=== PATIENT | female | born 1935 | race African-American/Black ===

== ENCOUNTER 2017-07-25 10:41 | Emergency (ER) | payer OTHER, BC ==
[2017-07-25 11:00] VITALS: BMI 25.3
--- NOTE | 2017-07-25 12:46 | PDOC ---
History of Present Illness - General Chief Complaint: Pain Stated Complaint: LT LEG PAIN, GOUT (PCP SENT) Time Seen by Provider: 07/25/17 12:16 History Source: Patient Exam Limitations: No Limitations - History of Present Illness Initial Comments: 07/25/17 12:33 Patient is a 82-year-old female with history of hypothyroidism, non-insulin- dependent diabetes, stent placement, was on high blood pressure medication recently discontinued. Patient also with recent episode of gout to right lower extremity on allopurinol and colchicine. Was sent by Dr. Gracia for evaluation of nontraumatic left upper leg pain. Patient was out yesterday walking around without any difficulty, went shopping. After questioning, Patient also complaining of tingling feeling to left side of the chest with left arm pain applied Aspercreme yesterday, pain still the same. Denies any shortness of breath. No jaw pain. No shortness of breath. Limited examination able to be performed while in fast track, patient unable to transfer to examination table from wheelchair. Allergies: No known allergies Medications: See medication list Family History: Non-contributory Social History: Denies smoking, alcohol use, or IVDU Review of Systems GENERAL/CONSTITUTIONAL: No fever or chills. No weakness. No weight change. HEAD, EYES, EARS, NOSE AND THROAT: No change in vision. No ear pain or discharge. No sore throat. CARDIOVASCULAR: Left-sided chest tingling with left arm pain, no shortness of breath RESPIRATORY: No cough, wheezing, or hemoptysis. GASTROINTESTINAL: No nausea, vomiting, diarrhea or constipation. No rectal bleeding. GENITOURINARY: No dysuria, frequency, or change in urination. MUSCULOSKELETAL: No joint or muscle swelling or pain. No neck or back pain. Pain to left upper leg SKIN AND BREASTS: No rash or easy bruising. NEUROLOGIC: No headache, vertigo, loss of consciousness, or loss of sensation. PSYCHIATRIC: No depression or anxiety. ENDOCRINE: No increased thirst. No abnormal weight change. HEMATOLOGIC/LYMPHATIC: No anemia, easy bleeding, or history of blood clots. ALLERGIC/IMMUNOLOGIC: No hives or skin allergy. No latex allergy. Physical Exam: GENERAL: The patient is awake, alert, and fully oriented, in no acute distress. EYES: Pupils equal, round and reactive to light, extraocular movements intact, sclera anicteric, conjunctiva clear. ENT: Ears normal, nares patent, oropharynx clear without exudates. Moist mucous membranes. No uvula deviation NECK: Normal range of motion, supple without lymphadenopathy, JVD, or masses. LUNGS: Breath sounds equal, clear to auscultation bilaterally. No wheezes, and no crackles. HEART: Regular rate and rhythm, normal S1 and S2 without murmur, rub or gallop. MUSCULOSKELETAL: Decreased range of motion to left upper leg, unable to bear weight pain with standing, with pain on range of motion no edema, no erythema, no bruising. No evidence of injury. No clubbing or cyanosis. No cords, erythema , or tenderness. No CVA Tenderness with fist palpation. SKIN: Warm, Dry, normal turgor, no rashes or lesions noted. Past History - Past Medical History Allergies/Adverse Reactions: Allergies Allergy/AdvReac Type Severity Reaction Status Date / Time Penicillins Allergy Difficulty Verified 07/25/17 10:55 Breathing Home Medications: Ambulatory Orders Allopurinol [Zyloprim -] 100 mg PO DAILY 07/25/17 Aspirin [Lio Chewable] 81 mg PO ASDIR 07/25/17 Glipizide 10 mg PO ASDIR 07/25/17 Levothyroxine [Synthroid -] 25 mcg PO DAILY 07/25/17 Lidocaine 5% Patch [Lidoderm Patch -] 1 patch TP DAILY #7 patch 07/25/17 Tramadol HCl 50 mg PO Q6H #12 tablet MDD 200mg 07/25/17 Diabetes: Yes Other medical history: GOUT - Suicide/Smoking/Psychosocial Hx Smoking History: Never smoked *Physical Exam - Vital Signs Last Vital Signs Temp Pulse Resp BP Pulse Ox 98.3 F 87 19 118/50 97 07/25/17 10:56 07/25/17 10:56 07/25/17 10:56 07/25/17 10:56 07/25/17 10:56 Medical Decision Making - Medical Decision Making 07/25/17 12:46 A/P: Based upon patient's clinical presentation and nontraumatic pain to leg also with left-sided chest discomfort and left arm pain patient sent to main emergency department for higher level of care. Report to Shaye CUNNINGHAM. Patient transferred via wheelchair. Stable for transfer. *DC/Admit/Observation/Transfer Diagnosis at time of Disposition: Thigh pain Qualifiers: Laterality: left Qualified Code(s): M79.652 - Pain in left thigh - Discharge Dispostion Disposition: HOME Condition at time of disposition: Improved - Prescriptions Prescriptions: Lidocaine 5% Patch [Lidoderm Patch -] 1 patch TP DAILY #7 patch Tramadol HCl 50 mg PO Q6H #12 tablet MDD 200mg - Referrals Referrals: Griffin Gracia MD [Primary Care Provider] - - Patient Instructions Additional Instructions: Take medications as prescribed and follow-up with your primary doctor next week
[2017-07-25] MEDS ORDERED: traMADol HCL 50 MG TABLET PO ONE (13:35)
[2017-07-25] MEDS ORDERED: KETOROLAC TROMETHAMINE 30 MG/1 ML VIAL IM ONE (13:35)
[2017-07-25] MEDS ORDERED: KETOROLAC TROMETHAMINE 30 MG/1 ML VIAL ONE (13:48)
[2017-07-25] MEDS ORDERED: traMADol HCL 50 MG TABLET ONE (13:48)
--- NOTE | 2017-07-25 13:58 | PDOC ---
History of Present Illness - General History Source: Patient - History of Present Illness Occurred: reports: this morning Lower Extremity Pain Location: left: other (anteriomedial L thigh) <Hipolito Garcia - Last Filed: 07/25/17 15:05> <Hannah Ireland - Last Filed: 07/25/17 16:53> - General Chief Complaint: Pain Stated Complaint: LT LEG PAIN, GOUT (PCP SENT) Time Seen by Provider: 07/25/17 12:16 Past History - Past Medical History Diabetes: Yes Other medical history: GOUT - Suicide/Smoking/Psychosocial Hx Smoking History: Never smoked <Sharita GarciaShadRina - Last Filed: 07/25/17 15:05> <Hannah Ireland - Last Filed: 07/25/17 16:53> - Past Medical History Allergies/Adverse Reactions: Allergies Allergy/AdvReac Type Severity Reaction Status Date / Time Penicillins Allergy Difficulty Verified 07/25/17 10:55 Breathing Home Medications: Ambulatory Orders Allopurinol [Zyloprim -] 100 mg PO DAILY 07/25/17 Aspirin [Lio Chewable] 81 mg PO ASDIR 07/25/17 Glipizide 10 mg PO ASDIR 07/25/17 Levothyroxine [Synthroid -] 25 mcg PO DAILY 07/25/17 Lidocaine 5% Patch [Lidoderm Patch -] 1 patch TP DAILY #7 patch 07/25/17 Tramadol HCl 50 mg PO Q6H #12 tablet MDD 200mg 07/25/17 Review of Systems - Review of Systems Constitutional: No: Chills, Fever Respiratory: No: Shortness of Breath Cardiac (ROS): No: Chest Pain, Palpitations Musculoskeletal: No: Joint Pain Integumentary: No: Erythema <Sharita GarciaShadRina Last Filed: 07/25/17 15:05> *Physical Exam - Vital Signs Last Vital Signs Temp Pulse Resp BP Pulse Ox 98.3 F 87 19 118/50 97 07/25/17 10:56 07/25/17 10:56 07/25/17 10:56 07/25/17 10:56 07/25/17 10:56 - Physical Exam General Appearance: Yes: Appropriately Dressed. No: Apparent Distress HEENT: positive: Normal Voice Neck: positive: Supple Respiratory/Chest: positive: Lungs Clear, Normal Breath Sounds. negative: Respiratory Distress Cardiovascular: positive: Regular Rate, S1, S2 Extremity: positive: Normal Inspection, Other (pain to L thigh w/ flex/ext of hip joint, no skin changes, LLE pulses intact). negative: Tender, Swelling Integumentary: positive: Dry, Warm Neurologic: positive: Fully Oriented, Alert, Normal Mood/Affect <Hipolito Garcia - Last Filed: 07/25/17 15:05> - Vital Signs Last Vital Signs Temp Pulse Resp BP Pulse Ox 98.2 F 82 18 120/56 98 07/25/17 15:49 07/25/17 15:49 07/25/17 15:49 07/25/17 15:49 07/25/17 15:49 <Hannah Ireland - Last Filed: 07/25/17 16:53> ED Treatment Course - RADIOLOGY Radiology Studies Ordered: Category Date Time Status FEMUR-LEFT [RAD] Stat Radiology 07/25/17 13:54 Ordered HIP-LEFT [RAD] Stat Radiology 07/25/17 13:54 Ordered - Medications Given in the ED: ED Medications Discontinued Medications Generic Name Dose Route Start Last Admin Trade Name Freq PRN Reason Stop Dose Admin Ketorolac Tromethamine 30 mg 07/25/17 13:35 07/25/17 13:40 Toradol Injection - IM 07/25/17 13:36 30 mg ONCE ONE Administration Tramadol HCl 50 mg 07/25/17 13:35 07/25/17 13:40 Ultram - PO 07/25/17 13:36 50 mg ONCE ONE Administration <Hipolito Garcia - Last Filed: 07/25/17 15:05> - Medications Given in the ED: ED Medications Discontinued Medications Generic Name Dose Route Start Last Admin Trade Name Freq PRN Reason Stop Dose Admin Ketorolac Tromethamine 30 mg 07/25/17 13:35 07/25/17 13:40 Toradol Injection - IM 07/25/17 13:36 30 mg ONCE ONE Administration Lidocaine 1 patch 07/25/17 14:58 07/25/17 15:36 Lidoderm Patch - TP 07/25/17 14:59 1 patch ONCE ONE Administration Tramadol HCl 50 mg 07/25/17 13:35 07/25/17 13:40 Ultram - PO 07/25/17 13:36 50 mg ONCE ONE Administration <Hannah Ireland - Last Filed: 07/25/17 16:53> Medical Decision Making - Medical Decision Making 07/25/17 13:59 Patient is a 82-year-old female with history of hypothyroidism, non-insulin- dependent diabetes, HTN, CAD with stent, gout to R great toe, presents with severe pain to left thigh that patient that started this a.m. Unable to describe pain, but states it is constant and located to anterior left thigh and worse with movement at left hip joint. Patient states she has been unable to bear weight. Denies any skin changes or swelling. No trauma. No history of history of similar episode. No fever or chills. Has not taken anything for pain. Of note, patient was initially seen in fast track but bumped over to main ED as it was documented that patient was complaining of chest pain radiating to left arm. On my eval, patient denies any chest pain or shortness of breath at this time. EKG was performed and is unremarkable as discussed with ED attending. As pt denies any chest pain at this point, do not feel further cardiac workup necessary and will proceed w/ eval of thigh pain See exma Atraumatic thigh pain No e/o infection, unlikely DVT as no calf pain, swelling, tenderness along deep venous system or obvious RF, possibly MSK -pain control -XR 07/25/17 14:06 07/25/17 14:59 Xray neg. Pain moderately improved w/ meds. Pt able to bear weight in ED, Dc w/ pain control an encourage PMD f/u 07/25/17 15:01 07/25/17 15:05 <Hipolito Garcia - Last Filed: 07/25/17 15:05> *DC/Admit/Observation/Transfer <Hipolito Garcia - Last Filed: 07/25/17 15:05> - Attestations Physician Attestion: I reviewed the case with the mid-level practitioner and agree with the mid- level practitioner's assessment, diagnosis and disposition. <Hannah Ireland - Last Filed: 07/25/17 16:53> Diagnosis at time of Disposition: Thigh pain Qualifiers: Laterality: left Qualified Code(s): M79.652 - Pain in left thigh - Discharge Dispostion Disposition: HOME Condition at time of disposition: Improved - Prescriptions Prescriptions: Lidocaine 5% Patch [Lidoderm Patch -] 1 patch TP DAILY #7 patch Tramadol HCl 50 mg PO Q6H #12 tablet MDD 200mg - Referrals Referrals: Griffin Gracia MD [Primary Care Provider] - - Patient Instructions Additional Instructions: Take medications as prescribed and follow-up with your primary doctor next week
[2017-07-25] MEDS ORDERED: LIDOCAINE 5% TOPICAL PATCH TP ONE (14:58)
[2017-07-25 15:52] VITALS: BP 120/56; PULSE 82; TEMP 98.2
[2017-07-25] MEDS ORDERED: LIDOCAINE PATCH REMOVAL MC SCH (22:00)
--- NOTE | 2017-07-26 13:12 | EKG ---
Test Reason : Blood Pressure : / mmHG Vent. Rate : 086 BPM Atrial Rate : 086 BPM P-R Int : 142 ms QRS Dur : 144 ms QT Int : 404 ms P-R-T Axes : 044 -09 128 degrees QTc Int : 483 ms SINUS RHYTHM WITH PREMATURE SUPRAVENTRICULAR COMPLEXES ATYPICAL LEFT BUNDLE BRANCH BLOCK ABNORMAL ECG WHEN COMPARED WITH ECG OF 19-JUN-2002 18:54, PREMATURE SUPRAVENTRICULAR COMPLEXES ARE NOW PRESENT NOTE PRESENSE OF CLBBB CLINICAL CORRELATION IS RECOMMENDED Confirmed by TREVOR ENGLISH, CAMILLE ([id number]) on 07/26/2017 1:11:57 PM Referred By: Confirmed By:CAMILLE MURRAY MD
== END 2017-07-25 15:52 | disposition home or self-care (01) ==
LOC: JERFT 10:41 → JER 10:41
PROC: 3E0233Z Introduction of Anti-inflammatory into Muscle, Percutaneous Approach (ICD-10-PCS; principal; 2017-07-25)
DX: M79.652 Pain in left thigh (principal); I25.10 Atherosclerotic heart disease of native coronary artery without angina pectoris; I10 Essential (primary) hypertension; Z95.5 Presence of coronary angioplasty implant and graft; E11.9 Type 2 diabetes mellitus without complications; Z79.84 Long term (current) use of oral hypoglycemic drugs; E03.9 Hypothyroidism, unspecified; M10.9 Gout, unspecified
CPT/HCPCS: 73502-TC-LT; 73552-TC-LT; 93005; 93010; 96372; 99282-25